=== PATIENT | male | born 1960 | race Asian ===

== ENCOUNTER 2020-01-04 06:48 | Day surgery (SDC) | payer OTHER ==
[~2020-01-04] VITALS: Ht 177.8 cm; Wt 83.9 kg
[2020-01-04 07:06] VITALS: BP 137/76
[2020-01-04 15:52] VITALS: BP 144/73
== END 2020-01-04 15:30 | disposition home or self-care (01) ==
LOC: DS 06:48 → OR 10:15 → DS 15:30
DX: S82.831A Other fracture of upper and lower end of right fibula, initial encounter for closed fracture (principal); E11.9 Type 2 diabetes mellitus without complications; E78.5 Hyperlipidemia, unspecified; F17.210 Nicotine dependence, cigarettes, uncomplicated; Z79.84 Long term (current) use of oral hypoglycemic drugs; X58.XXXA Exposure to other specified factors, initial encounter; Y93.89 Activity, other specified; Y92.89 Other specified places as the place of occurrence of the external cause; Y99.8 Other external cause status
CPT/HCPCS: 76001; 82962; C1713; J0690; J1885; J2175; J2250; J2270; J2405; J2704; J3010; J3490; J7030; Q0092